=== PATIENT | male | born 1955 | race Caucasian/White ===

== ENCOUNTER 2020-04-14 07:59 | Emergency (ER) | payer OTHER, SELFPAY ==
--- NOTE | ~2020-04-14 | XR_ITS ---
XR ankle LT min 3V DATE: 04/14/2020 08:15 INDICATION: Fall from ladder. Swelling of entire ankle and foot TECHNIQUE: 4 views COMPARISON: None FINDINGS: There is a comminuted fracture of the calcaneus with intra-articular extension of the subta lar joint, flattening of Boehler's angle. Posterior calcaneal enthesopathy. No fracture or dislocation of the ankle or disruption of the ankle mortise is evident. There is promi nent plantar lateral ankle soft tissue swelling. IMPRESSION: Comminuted fracture of the calcaneus Prominent predominantly lateral soft tissue swelling of the ankle Reviewed, dictated and finalized at location A.
--- NOTE | ~2020-04-14 | XR_ITS ---
XR foot LT min 3V DATE: 04/14/2020 08:15 INDICATION: Fall from ladder. Swelling of entire ankle and foot. TECHNIQUE: 4 views COMPARISON: None FINDINGS: There is a prominently comminuted calcaneal fracture with intra-articular extension at the subtalar and calcaneal cuboid joints. There is flattening of Boehler's angle. No other fracture or dislocation is evident. Soft tissue swelling of the ankle and foot. Prominent posterior calcaneal enthesopathy. IMPRESSION: Comminuted calcaneal fracture with intra-articular extension at the subtalar and calcaneo cuboid joints Reviewed, dictated and finalized at location A. IMPRESSION: Comminuted calcaneal fracture with intra-articular extension at the subtalar and calcaneocuboid joints
--- NOTE | ~2020-04-14 | CT_ITS ---
CT foot LT wo con DATE: 04/14/2020 09:40 INDICATION: Fall from ladder. Calcaneal fracture. TECHNIQUE: Axial images and subsequent sagittal and coronal reconstructions of the left foot COMPARISON: None FINDINGS: There is a severely comminuted fracture throughout the calcaneus from the anterior to the p osterior aspect, with multiple subtalar intra-articular extensions, as well as intra-articular extens ion at the calcaneocuboid joint. There is spreading of the fracture fragments. There is flattening of Boehler's angle. Posterior calcaneal enthesopathy. IMPRESSION: Severely comminuted calcaneal fracture Reviewed, dictated and finalized at Location [facility]. Reviewed, dictated and finalized at location A.
[2020-04-14 08:01] VITALS: BP 169/78; PULSE 81; RESP 18; TEMP 36.8; O2SAT 99
--- NOTE | 2020-04-14 08:07 | ED.LOWEXIN ---
HPI - Extremity Injury (Lower) General Chief Complaint: Extremity Injury, Lower Stated Complaint: left foot injury Time Seen by Provider: 04/14/20 08:01 Source: patient Mode of arrival: ambulatory Limitations: no limitations History of Present Illness HPI Narrative: This patient is a 65 year old male who presents for evaluation of left foot injury. He states he fell 3 feet off his ladder on to his left heel 5 days ago. He has been having pain and swelling to his left foot. His doctor ordered xrays on Wednesday and he was called by his doctor last night with results of a heel fracture. He was told he needed to come to ER to get cast. He is unable to bear weight, but he has been getting around with a walker. He denies any other injuries. He denies hitting head, headache, knee or hip pain. He also denies back pain. He denies numbness or tingling . He did note he developed a fracture blister to inner part of his left heel. MD complaint: foot injury Related Data Home Medications Medication Instructions Recorded Confirmed amlodipine 10 mg tablet 10 mg PO DAILY 08/21/19 chlordiazepoxide HCl 25 mg capsule 25 mg PO Q8H PRN 08/21/19 doxazosin 2 mg tablet 2 mg PO DAILY 08/21/19 escitalopram oxalate 20 mg tablet 20 mg PO DAILY 08/21/19 fenofibrate 160 mg tablet 160 mg PO DAILY 08/21/19 hydrochlorothiazide 25 mg tablet 25 mg PO DAILY 08/21/19 losartan 50 mg tablet 50 mg PO DAILY 08/21/19 Allergies Allergy/AdvReac Type Severity Reaction Status Date / Time lisinopril Allergy Unknown Anaphylaxis Verified 04/14/20 08:06 Review of Systems Review of Systems: All systems reviewed & are unremarkable except as noted in HPI and below PMFSH Past Medical History Medical History (Updated 04/14/20 @ 10:21 by Rita Andrade MD) Cardiac arrhythmia Essential (primary) hypertension Mixed hyperlipidemia Social History Social History (System 01/30/20 @ 09:08 by Raissa Stuart) Smoking status: Never smoker Alcohol intake: current Exam Const: General: no acute distress and alert Orientation/consciousness: patient oriented x3 HENMT: Head: normocephalic and atraumatic Eyes: EOM: EOMs intact bilaterally Resp: Effort & Inspection: normal respiratory effort Skin: Other: left foot with ecchymosis to plantar surface, ruptures ulceration at site of fracture blister Neuro: General: patient oriented x3 and moves all extremities Extrem: Other: left foot and ankle swelling , able to doppler strong DP/PT pulses Course Reevaluation(s) Date: 04/14/20 Consultations Consultation #1: I discussed case with Dr. Hansen. He recommends CT foot and posterior splint. Date: 04/14/20 Time: 09:17 Vital Signs Vital signs: Vital Signs Temperature 98.3 F 04/14/20 08:01 Pulse Rate 81 04/14/20 08:01 Respiratory Rate 18 04/14/20 08:01 Blood Pressure 169/78 H 04/14/20 08:01 Pulse Oximetry 99 04/14/20 08:01 Temperature 98.3 F 04/14/20 08:01 Pulse Rate 78 04/14/20 10:42 Respiratory Rate 18 04/14/20 10:42 Blood Pressure 158/75 H 04/14/20 10:42 Pulse Oximetry 99 04/14/20 10:42 MDM - Extremity Injury (Lower) Imaging Data Radiologist's impression: ITS Impressions Ankle X-Ray 04/14/20 08:34 IMPRESSION: Comminuted fracture of the calcaneus Prominent predominantly lateral soft tissue swelling of the ankle Foot X-Ray 04/14/20 08:38 IMPRESSION: Comminuted calcaneal fracture with intra-articular extension at the subtalar and calcaneocuboid joints Foot CT 04/14/20 10:13 IMPRESSION: Severely comminuted calcaneal fracture Discharge Plan Discharge Clinical Impression: Closed left calcaneal fracture Qualifiers: Encounter type: initial encounter Fracture morphology: intra-articular Fracture alignment: displaced Qualified Code(s): S92.062A - Displaced intraarticular fracture of left calcaneus, initial encounter for closed fracture Patient Disposi
[2020-04-14] MEDS: TETANUS,DIPHTHERIA,AC PERTUSSIS ADULT (0.5 ML) BOOSTRIX IM (08:14)
[2020-04-14 10:42] VITALS: BP 158/75; PULSE 78; RESP 18; O2SAT 99
== END 2020-04-14 10:45 | disposition home or self-care (01) ==
PROVIDERS: Emergency Provider General Practice
DX: S92.062A Displaced intraarticular fracture of left calcaneus, initial encounter for closed fracture (principal); E78.2 Mixed hyperlipidemia; I10 Essential (primary) hypertension; Z23 Encounter for immunization; W11.XXXA Fall on and from ladder, initial encounter
CPT/HCPCS: 29515; 73610; 73630; 73700; 90471; 90715; 99284

== ENCOUNTER 2021-01-17 20:47 | Emergency (ER) | payer OTHER, SELFPAY ==
[2021-01-17] VITALS (34 sets, daily range): BP systolic 80–221; BP diastolic 63–104; PULSE 83–168; RESP 12–40; TEMP 36.4; O2SAT 90–100
--- NOTE | ~2021-01-17 | CT_ITS ---
EXAMINATION: CTA BRAIN/CAROTID DATE: 01/17/2021 21:14 INDICATION: Altered mental status. Seizure. Cardiac arrest. TECHNIQUE: Computed tomographic angiography (CTA) of the head and neck was performed with 100 mL Omni paque-350 intravenous contrast. Multiplanar reconstructions and maximum intensity projection 3D-recon structions of the carotid arteries and of the intracranial arteries were created by the technologist on a separate workstation. Precontrast CT of the head was also obtained. Automated exposure control and iterative reconstruction technique were employed.The dose-length product was 1957.82 mGy-cm. COMPARISON: Head CT dated 06/22/2019 FINDINGS: Carotid arteries: There is small amount of atherosclerotic plaque with 0% stenosis of the right carotid bulb relative t o normal distal artery lumen diameter (NASCET criteria). There is small amount of atherosclerotic joe que was 0% stenosis of the left carotid bulb relative to normal distal artery lumen diameter. Endotra cheal tube extends into the intrathoracic trachea and beyond the inferior margin of the [id number] . Based upon the heel layer topogram the tip appears to extend slightly into the right mainstem bronchus. I discussed this with Dr. Peña and a chest radiograph has already been performed and this will b e reassessed based upon the chest radiograph. Mild emphysema. There are multiple scattered pulmonary nodules with random distribution measuring up to 1 cm scattered throughout the visualized bilateral u pper lungs most consistent with metastatic disease. More patchy airspace opacities in the dependent a spect of the bilateral upper lobes which could represent atelectasis and/or pneumonia. Mild lymphaden opathy in the upper mediastinum and along the left jugular chain suspicious for metastatic disease. M oderate cervical spondylosis. Head: No acute intracranial hemorrhage, acute infarction or abnormal extra axial fluid collection. Ventricl es are normal and symmetric. 2.7 x 1.6 x 1.3 similar extra-axial dural-based mass at the vertex suspi cious for metastatic disease with differential including meningioma. There is an additional 1.6 x 1.4 x 1.6 cm nodule in the parietal scalp just to the left of midline which appears to protrude beyond t he skin surface. Changes of right intraocular lens replacement. The orbits, paranasal sinuses and mas toid air cells are normal. Intracranial arteries There is no hemodynamically significant stenosis in the vertebral, basilar and internal carotid arter ies. Vertebral arteries are codominant. There are no aneurysms identified. Both A1 and P1 segments a re patent. Cerebral arterial arborization appears symmetric. IMPRESSION: 1. Multiple scattered pulmonary nodules, dural based extra-axial mass at the vertex, left parietal sc alp nodule and mild lymphadenopathy at the inferior left jugular chain and superior mediastinum all c oncerning for metastatic disease. The scalp lesion would be the most amenable to percutaneous biopsy. 2. 0% stenosis of the right carotid bulb relative to normal distal artery lumen diameter (NASCET crit eria). 3. 0% stenosis of the left carotid bulb relative to normal distal artery lumen diameter. 4. No acute intracranial process with normal cerebral angiogram. Reviewed, dictated and finalized at location A. IMPRESSION: 1. Multiple scattered pulmonary nodules, dural based extra-axial mass at the ve rtex, left parietal scalp nodule and mild lymphadenopathy at the inferior left jugular chain and superior mediastinum all concerning for metastatic disease. T he scalp lesion would be the most amenable to percutaneous biopsy. 2. 0% stenosis of the right carotid bulb relative to normal distal artery lumen diameter (NASCET criteria). 3. 0% stenosis
--- NOTE | ~2021-01-17 | CT_ITS ---
EXAMINATION: CTA chest PE protocol DATE: 01/17/2021 23:05 INDICATION: Respiratory failure TECHNIQUE: Computed tomography (CT) pulmonary angiogram of the chest was performed with 100 mL Omnipa que-350 intravenous contrast. Additional 3D reconstructions utilizing coronal maximum intensity proje ction (MIP) were performed. The dose-length product was 1026.77 mGy-cm. COMPARISON: None FINDINGS: Excellent contrast opacification of the pulmonary arteries. There is mild streak artifact from dense contrast in the superior vena cava and right atrium. Mild scattered respiratory motion artifact which mildly decreases sensitivity in some of the smaller subsegmental pulmonary arteries. No pulmonary em bolism. There are numerous scattered bilateral pulmonary nodules, the largest measuring up to 11 mm w ith random distribution consistent with metastatic disease. There is consolidation in the dependent a spect of the bilateral upper and lower lobes which could represent atelectasis and/or pneumonia. Ther e is decreased attenuation and less than expected expected degree of vascular clouding of the region of consolidation in the posterior basilar segment of the left lower lobe which would be more consiste nt with pneumonia. No pulmonary edema or pleural effusion. Cardiomegaly. Mild aortic valve calcific lesion. No pericardial effusion. Thoracic aorta is normal in caliber with no dissection. Mild mediastinal lymphadenopathy which could be reactive or metastatic. Endotracheal tube tip 3.5 cm above the jorge. Nasogastric tube extends into the body of the stomach. There is distention of the mid to distal esophagus. Intermediate attenuation material, unclear wheth er this presents soft tissue mass or ingested/reflux material is seen in much of the stomach. Attenua tion material within the decompressed gallbladder which could represent gallstones or vicariously exc reted contrast. There are scattered lytic lesions throughout the spine, the largest in the T6 vertebr al body consistent with metastatic disease. There are bridging osteophytes at multiple levels in the spine, consistent with diffuse idiopathic skeletal hyperostosis (DISH). IMPRESSION: 1. No pulmonary embolism. 2. Numerous scattered bilateral pulmonary nodules, mild mediastinal lymphadenopathy and several scatt ered lytic bone lesions in the thoracic spine consistent with metastatic disease. 3. Consolidation in the dependent bilateral upper and lower lobes which in the left lower lobe which could represent atelectasis and/or pneumonia but more suspicious for pneumonia in the left lower lobe . 4. distention of the distal esophagus filled with soft tissue density which could represent either in gested refluxed material or potentially a primary esophageal malignancy. Consider upper GI study or e ndoscopy for further evaluation. 5. Cardiomegaly. Reviewed, dictated and finalized at location A. IMPRESSION: 1. No pulmonary embolism. 2. Numerous scattered bilateral pulmonary nodules, mild mediastinal lymphadenop athy and several scattered lytic bone lesions in the thoracic spine consistent with metastatic disease. 3. Consolidation in the dependent bilateral upper and lower lobes which in the left lower lobe which could represent atelectasis and/or pneumonia but more benny picious for pneumonia in the left lower lobe. 4. distention of the distal esophagus filled with soft tissue density which cou ld represent either ingested refluxed material or potentially a primary esophag eal malignancy. Consider upper GI study or endoscopy for further evaluation. 5. Cardiomegaly.
--- NOTE | ~2021-01-17 | XR_ITS ---
EXAMINATION: XR chest ET placement, XR abdomen NG/feed tube insert DATE: 01/17/2021 21:36 INDICATION: Cardiac arrest. Endotracheal tube placement. Nasogastric tube placement TECHNIQUE: 1. Portable supine AP view of the chest was obtained. 2. Portable supine AP view of the abdomen was obtained. COMPARISON: Chest radiograph dated 06/21/2019 FINDINGS: Chest: Endotracheal tube tip in the right mainstem bronchus 3 cm below the jorge. Nodular and patchy airsp hernán opacities throughout both lungs concerning for metastatic disease and possible superimposed pneum onia. No pneumothorax or definitive pleural effusion. Cardiomegaly. The cardiomediastinal silhouette is normal. Visualized bones and soft tissues are unremarkable. Abdomen: Nasogastric tube tip in proximal side port in the body of the stomach. No dilated loops of gas-filled bowel in the visualized abdomen. IMPRESSION: 1. Endotracheal tube tip in the right mainstem bronchus 3 cm below the jorge. Recommend withdrawal b y 5 cm and reimaging. 2. Nasogastric tube in the stomach. 3. Bilateral nodular and patchy lung disease concerning for cystic disease and superimposed pneumonia . Reviewed, dictated and finalized at location A. IMPRESSION: 1. Endotracheal tube tip in the right mainstem bronchus 3 cm below the jorge. Recommend withdrawal by 5 cm and reimaging. 2. Nasogastric tube in the stomach. 3. Bilateral nodular and patchy lung disease concerning for cystic disease and superimposed pneumonia.
--- NOTE | ~2021-01-17 | XR_ITS ---
EXAMINATION: XR chest 1V portable DATE: 01/17/2021 22:52 INDICATION: Endotracheal tube repositioning TECHNIQUE: frontal view of the chest was obtained. COMPARISON: Chest radiograph dated 01/17/2021 at 9:33 PM FINDINGS: Endotracheal tube tip 4.8 cm above the jorge. Nasogastric tube tip in proximal side port in the body of the stomach. Mild elevation of the right hemidiaphragm. Nodular and patchy airspace opacities in both lungs. No pl eural effusion or pneumothorax. Cardiomegaly. IMPRESSION: 1. Endotracheal tube and nasogastric tube in acceptable positions. 2. Nodular and patchy airspace opacities throughout both lungs suspicious for metastatic disease and superimposed pneumonia. Reviewed, dictated and finalized at location A. IMPRESSION: 1. Endotracheal tube and nasogastric tube in acceptable positions. 2. Nodular and patchy airspace opacities throughout both lungs suspicious for m etastatic disease and superimposed pneumonia.
--- NOTE | 2021-01-17 20:48 | PC.NURSE ---
EREP intubated patient, pulse dropping to 36, ERP at [facility] bagging patient.
--- NOTE | 2021-01-17 20:50 | PC.NURSE ---
Per ERP prepare patient to go to CT.
--- NOTE | 2021-01-17 21:10 | ED.SEIZURE ---
HPI - Seizure General Chief Complaint: Seizure Stated Complaint: seizure - unresponsive Time Seen by Provider: 01/17/21 20:53 History of Present Illness HPI Narrative: 65 yo w/ h/o htn, alcohol withdrawal seizure presents to the ED after a seizure. Per EMS his reported that he was complaining about leg pain. He then fell forward and began having a seizure. When PD arrived he was not breathing and had no pulse. They initiated CPR. When EMS got there they checked and said that he had a pulse, but was still unresponsive. He was noted to have what appeared to be decorticate posturing. History limited by acute of illness and mental status. Related Data Home Medications Medication Instructions Recorded Confirmed amlodipine 10 mg tablet 10 mg PO DAILY 08/21/19 04/17/20 chlordiazepoxide HCl 25 mg capsule 25 mg PO Q8H PRN 08/21/19 04/17/20 doxazosin 2 mg tablet 2 mg PO DAILY 08/21/19 04/17/20 escitalopram oxalate 20 mg tablet 20 mg PO DAILY 08/21/19 04/17/20 fenofibrate 160 mg tablet 160 mg PO DAILY 08/21/19 04/17/20 hydrochlorothiazide 25 mg tablet 25 mg PO DAILY 08/21/19 04/17/20 losartan 50 mg tablet 50 mg PO DAILY 08/21/19 04/17/20 Allergies Allergy/AdvReac Type Severity Reaction Status Date / Time lisinopril Allergy Unknown Anaphylaxis Verified 04/15/20 13:05 Review of Systems Review of Systems: ROS unobtainable: Yes unobtainable due to mental status [facility] Past Medical History Medical History (Updated 01/19/21 @ 00:00 by Background Daemon) Cardiac arrhythmia Essential (primary) hypertension Mixed hyperlipidemia Family History Family History Sibling Hypertension Mother Family history of congestive heart failure Other Family history of mental disorder Social History Social History Smoking status: Never smoker Alcohol intake: current Exam Const: Other: severe distress. unresponsive. gasping HENMT: Other: vomitus around mouth and nose nasal trumpet in place Eyes: Pupils: Equal, round and reactive pupils present Other: doll's eye movements Neck: Neck: normal visual inspection Chest: Chest palpation & inspection: normal inspection of the chest Resp: Auscultation: crackles Other: crackles, gasping, not protecting airway Cardio: Rate: tachycardic Rhythm: abnormal rhythm irregularly irregular GI: Other: soft Skin: General skin exam: normal color Neuro: Other: unresponsive. extending arms and flexing at the hips. Extrem: General: normal to inspection and no edema Course Vital Signs Vital signs: Vital Signs Temperature 36.4 C 01/17/21 20:41 Pulse Rate 168 H 01/17/21 20:41 Respiratory Rate 40 H 01/17/21 20:41 Pulse Oximetry 90 01/17/21 20:41 Temperature 36.4 C 01/18/21 03:00 Pulse Rate 82 01/18/21 03:00 Respiratory Rate 18 01/18/21 03:00 Blood Pressure 97/62 L 01/18/21 03:00 Pulse Oximetry 97 01/18/21 03:00 Procedures Intubation Intubation #1: sedative: Etomidate Mg Given: 20 paralytic: Rocuronium Mg Given: 50 Laryngoscope: Karine Tube Size (cm): Cuffed Method of Intubation: orotracheal Number of Attempts: 1 Tube Secured Depth (cm): 26 Tube Secured Location: lips Tube Placement Confirmation: visualized tube passing through cords, equal breath sounds bilaterally, no breath sounds over epigastrium and confirmation by capnometry Patient Tolerated Procedure: well Additional Comments: tube deep on chest x-ray. Appears to have been pushed in by 2 cm after initial placement. Pulled back 5 cm. Now 23 cm at the lip. MDM - Seizure MDM Narrative Medical decision making narrative: CTA of head and neck suspicious for metastatic disease. No ICH or mass effect. He now has high O2 requirement. Story of leg pain followed by collapse and respiratory fail
[2021-01-17] MEDS: SODIUM CHLORIDE 0.9% IV 1,000 ML 999 ML IV CONT ×2 (21:25→23:02)
[2021-01-17 21:35] LABS: Glucose Point of Care 182 (65-105)
--- NOTE | 2021-01-17 21:39 | ECG_ITS ---
Measurements Intervals [place] Rate: 123 P: OR: 0 QRS: 53 QRSD: 103 T: 66 QT: 366 QTc: 524 Interpretive Statements ATRIAL FIBRILLATION WITH RAPID VENTRICULAR RESPONSE VENTRICULAR PREMATURE COMPLEXES INCOMPLETE RIGHT BUNDLE BRANCH BLOCK NONSPECIFIC ST & T-WAVE ABNORMALITY- DIFFUSE LEADS ABNORMAL ECG Electronically Signed On 01-18-2021 8:42:41 CDT by Mitch Mullen D.O.
--- NOTE | 2021-01-17 21:40 | PC.NURSE ---
[address] [facility] [address] Peña give 20 etomidate and50 migdalia for intubation. 2046 Patient intubated by with 8 tube adn 26 at the lip.positive color change. 2052 EKG done. [address]
--- NOTE | 2021-01-17 21:42 | PC.NURSE ---
2120 VORB per give 2mg versed and 100mg of fentanyl. given at 2121. [address] VORB per Dr cho at 2134 100mg ketamine.
[2021-01-17 21:45] LABS: Alveolar/Arterial O2 Gradient 529.4 mmHg; Base Excess ABG -5.9 mEq/l (+/-2.0); Device VENTILATOR; Fractional Inspired Oxygen 100 %; HCO3 ABG 20.2 mEq/l (22.0-26.0); Modified Allen's Test Pass; Oxygen Content ABG 14.8 %vol (16.0-22.0); Oxygen Saturation ABG 98.6 % (95.0-100.0); Oxyhemoglobin 97.5 % THb (90.0-100.0); PCO2 ABG 41.8 mmHg (35.0-45.0); PO2 ABG 141.8 mmHg (80.0-100.0); PO2 FiO2 Ratio Arterial Blood 1.42 %; Site Drawn LEFT RADIAL; Total Hemoglobin 10.6 g/dL (12.0-18.0); pH ABG 7.301 (7.350-7.450)
[2021-01-17 21:45] LABS: Basophils Absolute Auto 0.1 K/mm3 (0.0-0.1); Basophils Percent Auto 0.6 % (0.2-1.2); Eosinophils Absolute Auto 0.2 K/mm3 (0-0.3); Eosinophils Percent Auto 2.7 % (0-4.4); Hematocrit 36.8 % (42.0-52.0); Hemoglobin 11.2 g/dL (14.0-18.0); Immature Granulocyte Absolute 0.11 K/mm3 (0.00-0.031); Immature Granulocyte Percent A 1.2 % (0-0.5); Lymphocytes Absolute Auto 2.17 K/mm3 (0.9-3.2); Lymphocytes Percent Auto 24.1 % (18.3-44.2); Mean Corpuscular HGB Conc 30.4 g/dl (32-36); Mean Corpuscular Hemoglobin 25.2 pg (26-34); Mean Corpuscular Volume 82.7 fl (80-100); Mean Platelet Volume 9.8 fl (7.4-10.4); Monocytes Absolute Auto 0.9 K/mm3 (0.1-0.6); Monocytes Percent Auto 9.4 % (2.6-8.5); Neutrophils Absolute Auto 5.6 K/mm3 (1.3-6.7); Platelet Count Result 459 k/mm3 (150-375); Red Blood Count 4.45 M/mm3 (4.6-6.20); Red Cell Distribution Width 14.4 % (11.5-14.5)
[2021-01-17 21:46] LABS: Arterial Blood Gas PEEP 5 cmH2O; Arterial Blood Gas Tidal Volume 450 ml; Arterial Blood Gas Vent Mode CMV; Arterial Blood Gas Ventilator rate 15 /MIN
[2021-01-17 21:48] LABS: Add Urine Microscopic? YES; Appearance Urine Clear (Clear); Bilirubin Urine Negative (Negative); Blood Urine Negative (Negative); Color Urine Colorless (Yellow); Glucose Urine UA 1+ mg/dL (Negative); Ketones Urine Negative (Negative); Leukocyte Esterase Ur Negative LEU/UL (Negative); Nitrate Urine Negative (Negative); Protein Urine 2+ mg/dL (Negative); Specific Grav Ur 1.013 (1.001-1.035); Urobilinogen Urine Negative mg/dL (<2.0); WBC Urine 0-3 /hpf
[2021-01-17] MEDS: AMPICILLIN SULB 3 GM/NS 100 ML 3 GM/100 ML VIAL IVPB (21:52)
[2021-01-17 21:57] LABS: INR 0.9; Partial Thromboplastin Time 25.3 SECONDS (22.3-36.8)
[2021-01-17 22:04] LABS: Albumin Level 4.8 g/dL (3.5-5.1); Alkaline Phosphatase 169 U/L (38-126); Anion Gap 18 mmol/L (8-16); Aspartate Amino Transferase 52 U/L (17-59); Bilirubin,Total 0.3 mg/dL (0.2-1.3); Blood Urea Nitrogen 13 mg/dL (9-20); Calcium 9.2 mg/dL (8.4-10.2); Carbon Dioxide 22 mmol/L (22-30); Chloride 99 mmol/L (98-107); Estimated CRCL calculation 84 ml/min; Estimated Glomerular Filt Rate > 60; Glucose 216 mg/dL (75-110); Potassium 3.3 mmol/L (3.4-5.0); Sodium 139 mmol/L (137-145)
[2021-01-17 22:08] LABS: Alanine Aminotransferase 22 U/L (4-50); Troponin I < 0.012 ng/mL (0.000-0.034)
[2021-01-17] MEDS: PROPOFOL IV EMULSION 100 ML 6.71 MG IV CONT (22:14)
[2021-01-17] MEDS: levETIRAcetam 1000MG/NACL100ML 1,000 MG/100 ML BAG 400 MG IVPB (22:26)
[2021-01-18] VITALS (24 sets, daily range): BP systolic 88–134; BP diastolic 59–85; PULSE 70–94; RESP 15–20; TEMP 36.4; O2SAT 94–100
--- NOTE | 2021-01-18 00:57 | PC.NURSE ---
Patient moving around and starting to wake up. VORB per Dr. Nix give 20mg bolus of propofol and titrate drip to 25.
--- NOTE | 2021-01-18 01:20 | PC.NURSE ---
Sarah calls to inform this nurse that there is a crew on their way approx 20min.
[2021-01-18] MEDS: SODIUM CHLORIDE 0.9% IV 1,000 ML 999 ML (02:06)
--- NOTE | 2021-01-18 02:09 | PC.NURSE ---
VORB decrease drip to 15mcg. Hang another bolus.
[2021-01-18] MEDS: FENTANYL 2,500MCG/NS250ML(*CRX 2,500 MCG/250 ML BAG IV CONT (02:28)
[2021-01-18] MEDS: MIDAZOLAM 100MG/NS 100ML(*CRX) 100 MG/100 ML BAG IV CONT (02:30)
--- NOTE | 2021-01-18 02:53 | PC.NURSE ---
[facility] here now to transport patient
== END 2021-01-18 02:55 | disposition short-term general hospital (02) ==
PROVIDERS: Emergency Provider Emergency Medicine
DX: R56.9 Unspecified convulsions (principal); J96.00 Acute respiratory failure, unspecified whether with hypoxia or hypercapnia; J69.0 Pneumonitis due to inhalation of food and vomit; I10 Essential (primary) hypertension; E78.2 Mixed hyperlipidemia; G93.89 Other specified disorders of brain
CPT/HCPCS: 31500; 36415; 36600; 70450; 70496; 70498; 71045; 71275; 80053; 81001; 82805; 82948; 84443; 84484; 85025; 85610; 85730; 93005; 96361; 96365; 96374; 96375; 99291; J0171; J0295; J1953; J2250; J2704; J3010; J7030; J7040; Q9967

== ENCOUNTER 2021-02-16 04:33 | Emergency (ER) | payer OTHER, SELFPAY ==
--- NOTE | ~2021-02-16 | CT_ITS ---
EXAMINATION: CT brain wo con DATE: 02/16/2021 05:12 INDICATION: Bilateral extremity paralysis. TECHNIQUE: Computed tomography (CT) of the head was performed without intravenous contrast. The mA wa s adjusted according to patient size. Iterative reconstruction technique was employed. The dose-lengt h product was 605.33 mGy-cm. COMPARISON: Head CT 01/17/2021, 06/22/2019 FINDINGS: There is a 2.8 x 1.2 x 3.0 cm extra-axial mass overlying right frontoparietal region. There is a 1.9 cm mass in left parietal scalp. There is no intracranial hemorrhage or acute ischemic infar ct. The ventricles are normal in size. There are likely changes of right ocular lens replacement surg papo. There is mild mucosal thickening in the paranasal sinuses. There is a small right mastoid effusi on. IMPRESSION: 1. Extra-axial mass overlying right frontoparietal region and left parietal scalp mass, both new from 06/22/2019, consistent with metastatic disease. Reviewed, dictated and finalized at location A. IMPRESSION: 1. Extra-axial mass overlying right frontoparietal region and left parietal sca lp mass, both new from 06/22/2019, consistent with metastatic disease.
--- NOTE | ~2021-02-16 | CT_ITS ---
EXAMINATION: CT lumbar spine wo con DATE: 02/16/2021 05:12 INDICATION: Bilateral lower extremity paralysis. TECHNIQUE: Computed tomography (CT) of the lumbar spine was performed without intravenous contrast. A utomated exposure control and iterative reconstruction technique were employed. The dose-length produ ct was 1231.92 mGy-cm. COMPARISON: None FINDINGS: The bladder is distended. Bone alignment is normal. There is a lytic lesion in L2 vertebral body and left pedicle with pathologic burst fracture with 3/5 loss of height and severe central ricardo l stenosis. There are a few scattered small lytic lesions of bone. There is moderately decreased disc height at L1-L2 and mildly decreased disc height from L3-L4 through L5-S1. The following disc levels are specifically discussed: L1-L2: The disc is bulging. There is moderate and severe left facet joint osteoarthritis. There is mi ld right and moderate left neural foraminal stenosis. There is mild central canal stenosis. L2-L3: The disc is bulging. There is severe right and mild left facet joint osteoarthritis. There is mild bilateral neural foraminal stenosis. There is mild central canal stenosis. L3-L4: The disc is bulging. There is moderate right and mild left facet joint osteoarthritis. There i s moderate bilateral neural foraminal stenosis. There is mild central canal stenosis. L4-L5: The disc is bulging. There is severe bilateral facet joint osteoarthritis. There is moderate r ight and severe left neural foraminal stenosis. There is mild central canal stenosis. L5-S1: The disc is bulging. There is moderate and severe left facet joint osteoarthritis. There is mi ld bilateral neural foraminal stenosis. There is mild central canal stenosis. IMPRESSION: 1. Lytic lesions of bone, consistent with metastatic disease. 2. Pathologic burst fracture of L2 with severe central stenosis. 3. Moderate lumbar spondylosis. Reviewed, dictated and finalized at location A.
[2021-02-16 04:33] VITALS: BP 173/66; PULSE 86; RESP 18; TEMP 36.7; O2SAT 98
[2021-02-16 04:45] VITALS: BP 173/66; PULSE 88; RESP 16; O2SAT 92
--- NOTE | 2021-02-16 05:17 | ED.BACK ---
HPI - Back Pain/Injury General Chief Complaint: Back Pain/Injury Stated Complaint: lower back pain, decrease ability to walk, nausea Time Seen by Provider: 02/16/21 04:33 History of Present Illness HPI Narrative: Patient is a 65-year-old male with history of metastatic cancer of unknown primary source who presents the ER with reports of back pain. Patient reports she tried to get up from his couch to go the bathroom and was feeling weak and slid to the ground. His found him about an hour later and called the paramedics. And that timeframe he is able to get up with her assistance to the couch. For the paramedics he was able to ambulate with assistance and get on the cot. Patient reports he has been having chronic pain due to his metastatic tumors. He has been undergoing radiation treatments, last one was 2 days ago. Patient has known brain and spinal mets. In route patient received 100 mcg of fentanyl for pain. reports patient has been more confused over the last few days and has been trying to take more medication than prescribed due to pain. She has been controlling his medication so he cannot take too many pills. Upon arrival to the ED patient reports he can no longer move his lower extremities that they feel numb. His back pain has decreased. Related Data Home Medications Medication Instructions Recorded Confirmed amlodipine 10 mg tablet 10 mg PO DAILY 08/21/19 04/17/20 chlordiazepoxide HCl 25 mg capsule 25 mg PO Q8H PRN 08/21/19 04/17/20 doxazosin 2 mg tablet 2 mg PO DAILY 08/21/19 04/17/20 escitalopram oxalate 20 mg tablet 20 mg PO DAILY 08/21/19 04/17/20 fenofibrate 160 mg tablet 160 mg PO DAILY 08/21/19 04/17/20 hydrochlorothiazide 25 mg tablet 25 mg PO DAILY 08/21/19 04/17/20 losartan 50 mg tablet 50 mg PO DAILY 08/21/19 04/17/20 atorvastatin 80 mg PO DAILY 02/16/21 cholecalciferol (vitamin D3) 50 mcg PO DAILY 02/16/21 escitalopram oxalate 20 mg PO DAILY 02/16/21 ferrous sulfate 325 mg PO BID 02/16/21 hydrocodone-acetaminophen 1 tablet PO HS PRN 02/16/21 levetiracetam 500 mg PO BID 02/16/21 metformin 500 mg PO DAILY 02/16/21 tamsulosin mg PO 02/16/21 Allergies Allergy/AdvReac Type Severity Reaction Status Date / Time lisinopril Allergy Unknown Anaphylaxis Verified 04/15/20 13:05 Review of Systems Review of Systems: All systems reviewed & are unremarkable except as noted in HPI and below Musculoskeletal: Musculoskeletal: Reports back pain, Denies arthralgias and Denies joint swelling Neurologic: Reports focal weakness and Reports numbness PMFSH Past Medical History Medical History (Updated 02/16/21 @ 05:45 by Ortega Nix MD) Cardiac arrhythmia Essential (primary) hypertension Metastatic cancer Liver, lung, spine, brain Mixed hyperlipidemia Seizures Surgical History Surgical History (Updated 02/16/21 @ 05:45 by Ortega Nix MD) H/O foot surgery Calcaneal fracture Family History Family History Sibling Hypertension Mother Family history of congestive heart failure Other Family history of mental disorder Social History Social History Smoking status: Never smoker Alcohol intake: current Exam Narrative: Exam Narrative: GENERAL: Well-appearing, well-nourished, and in no acute distress. HEAD: Normocephalic, atraumatic. EYES: PERRL and EOMI. ENT: Mucous membranes moist. CHEST: Clear to auscultation. No respiratory distress. HEART: Regular rate and rhythm. Murmur heard in all lynn. Normal peripheral pulses. ABDOMEN: Soft, nontender, nondistended. EXTREMITIES: Normal range of motion. 1+ edema. SKIN: Warm, dry, no rash. NEURO: Patient with lower extremity paralysis as well as significant decrease in sensation to sharp and soft touch. Patient has essentially no response to sharp touch until reaching the proximal thigh on the left si
[2021-02-16 06:01] LABS: Basophils Percent Auto 0.2 % (0.2-1.2); Hematocrit 31.9 % (42.0-52.0); Hemoglobin 9.8 g/dL (14.0-18.0); Immature Granulocyte Absolute 0.09 K/mm3 (0.00-0.031); Lymphocytes Absolute Auto 0.33 K/mm3 (0.9-3.2); Lymphocytes Percent Auto 3.6 % (18.3-44.2); Mean Corpuscular HGB Conc 30.7 g/dl (32-36); Mean Corpuscular Hemoglobin 23.6 pg (26-34); Mean Corpuscular Volume 76.9 fl (80-100); Mean Platelet Volume 9.1 fl (7.4-10.4); Monocytes Absolute Auto 0.9 K/mm3 (0.1-0.6); Monocytes Percent Auto 9.5 % (2.6-8.5); Neutrophils Absolute Auto 7.8 K/mm3 (1.3-6.7); Neutrophils Percent Auto 85.7 % (45.5-73.1); Platelet Count Result 418 k/mm3 (150-375); Red Blood Count 4.15 M/mm3 (4.6-6.20); Red Cell Distribution Width 15.9 % (11.5-14.5); White Blood Count 9.1 K/mm3 (4.5-10.0)
[2021-02-16 06:02] LABS: Anion Gap 12 mmol/L (8-16); Blood Urea Nitrogen 10 mg/dL (9-20); Calcium 9.6 mg/dL (8.4-10.2); Carbon Dioxide 28 mmol/L (22-30); Chloride 97 mmol/L (98-107); Estimated CRCL calculation 139 ml/min; Estimated Glomerular Filt Rate > 60; Glucose 127 mg/dL (75-110); Potassium 4.3 mmol/L (3.4-5.0); Sodium 137 mmol/L (137-145)
== END 2021-02-16 06:00 | disposition short-term general hospital (02) ==
PROVIDERS: Emergency Provider Emergency Medicine
DX: G83.4 Cauda equina syndrome (principal); M84.58XA Pathological fracture in neoplastic disease, other specified site, initial encounter for fracture; C80.1 Malignant (primary) neoplasm, unspecified; C79.51 Secondary malignant neoplasm of bone; C79.31 Secondary malignant neoplasm of brain; M47.816 Spondylosis without myelopathy or radiculopathy, lumbar region; I10 Essential (primary) hypertension; E78.2 Mixed hyperlipidemia; C78.00 Secondary malignant neoplasm of unspecified lung; C78.7 Secondary malignant neoplasm of liver and intrahepatic bile duct
CPT/HCPCS: 36415; 70450; 72131; 80048; 85025; 99285